=== PATIENT | male | born 1995 | race American Indian/Alaskan Native ===

== ENCOUNTER 2017-04-02 09:17 | Emergency (ER) | payer OTHER ==
[2017-04-02] MEDS ORDERED: FLAGYL PO ONE (12:32)
--- NOTE | 2017-04-02 14:10 | Emergency Department Report ---
ED Male HPI - General Chief complaint: Urogenital-Male Stated complaint: PAIN/ITCHING IN GROIN Time Seen by Provider: 04/02/17 12:32 Source: patient Mode of arrival: Ambulatory Limitations: No Limitations - History of Present Illness Initial comments: This is a 22 y.o. male presents with recent exposure to STD. His partner was diagnosed with trichomonas. He had one episode of bloody discharge. Denies fever , dysuria, abdominal, and back pain. MD Complaint: penile discharge (bloody discharge once) -: unknown Location: penis Radiation: none Severity: mild Severity scale (0 -10): 0 Consistency: now resolved Improves with: none Worsens with: none new sexual partner (diagnosed with trichomonas) denies other symptoms - Related Data Sexually active: Yes Allergies Allergy/AdvReac Type Severity Reaction Status Date / Time No Known Allergies Allergy Unverified 04/02/17 09:28 ED Review of Systems ROS: Stated complaint: PAIN/ITCHING IN GROIN Other details as noted in HPI Constitutional: denies: chills, fever Respiratory: denies: cough, shortness of breath, wheezing Cardiovascular: denies: chest pain, palpitations Gastrointestinal: denies: abdominal pain, nausea, diarrhea Genitourinary: discharge (bloody discharge once). denies: urgency, dysuria, frequency, hematuria, testicular pain, testicular mass Neurological: denies: headache, weakness, paresthesias ED Past Medical Hx - Past Medical History Previous Medical History?: No - Surgical History Past Surgical History?: No - Social History Smoking Status: Never Smoker Substance Use Type: None ED Physical Exam - General Limitations: No Limitations General appearance: alert, in no apparent distress - Respiratory Respiratory exam: Present: normal lung sounds bilaterally. Absent: respiratory distress - Cardiovascular Cardiovascular Exam: Present: regular rate, normal rhythm. Absent: systolic murmur, diastolic murmur, rubs, gallop - GI/Abdominal GI/Abdominal exam: Present: soft, normal bowel sounds - exam: Present: normal inspection, circumcision. Absent: testicular tenderness, urethral discharge, scrotal swelling, vertical testicular lie External exam: Present: normal external exam. Absent: erythema, swelling, lesions, lacerations, ecchymosis, bleeding - Neurological Exam Neurological exam: Present: alert, oriented X3 - Skin Skin exam: Present: warm, dry, intact, normal color. Absent: rash ED Course Vital Signs 04/02/17 09:23 Temperature 97.7 F Pulse Rate 83 Respiratory 16 Rate Blood Pressure 110/68 O2 Sat by Pulse 97 Oximetry ED Medical Decision Making - Medical Decision Making 22 y.o. male presents with recent exposure to STD. New partner diagnosed with trichomonas. Empirically treated for trichomonas with metronidazole 2 g po. Discussed importance of safe sex practices. Follow-up with Health Department or PCP. Critical care attestation.: If time is entered above; I have spent that time in minutes in the direct care of this critically ill patient, excluding procedure time. ED Disposition Clinical Impression: STD exposure Disposition: DC-01 TO HOME OR SELFCARE Is pt being admited?: No Does the pt Need Aspirin: No Condition: Stable Instructions: Safe Sex (ED), Sexually Transmitted Diseases (ED), Trichomoniasis (ED) Additional Instructions: Follow up with Health Department or Primary Care Provider. Referrals: DARY DACOSTA MD [Primary Care Provider] - 3-5 Days [facility] [Outside] - 3[facility]5 Days [facility] - 3-5 Days [facility] [Outside] - 3-5 Days Time of Disposition: 14:18 Print Language: [id number]
[2017-04-02 14:27] VITALS: BP 115/70
== END 2017-04-02 14:26 | disposition home or self-care (01) ==
LOC: ED 09:17
DX: Z20.2 Contact with and (suspected) exposure to infections with a predominantly sexual mode of transmission (principal)
CPT/HCPCS: 99282